=== PATIENT | male | born 1985 | race Caucasian/White ===

== ENCOUNTER 2023-09-02 14:26 | Emergency (ER) | payer SELFPAY ==
[~2023-09-02] VITALS: Ht 188 cm; Wt 102.1 kg
[2023-09-02] MEDS ORDERED: NAPROSYN500 MG PO (15:10)
[2023-09-02] MEDS ORDERED: METHOCARBAMOL500 MG PO (15:10)
[2023-09-02] MEDS ORDERED: PREDNISONE50 MG PO (15:10)
[2023-09-02] MEDS ORDERED: KETOROLAC TROMETHAMINE 30 MG/ML VIAL ONE (15:13)
[2023-09-02] MEDS ORDERED: ACETAMINOPHEN 325 MG TAB ONE (15:13)
[2023-09-02] MEDS ORDERED: ACETAMINOPHEN 325 MG TAB PO ONE (15:15)
[2023-09-02] MEDS ORDERED: KETOROLAC TROMETHAMINE 60 MG/2 ML VIAL IM ONE (15:15)
[2023-09-02] MEDS ORDERED: KETOROLAC TROMETHAMINE 60 MG/2 ML VIAL ONE (15:15)
[2023-09-02 16:48] VITALS: O2SAT 99
== END 2023-09-02 16:03 | disposition home or self-care (01) ==
LOC: EDBD 14:26 → FSED 14:34
DX: M54.50 Low back pain, unspecified (principal); M25.551 Pain in right hip; F17.210 Nicotine dependence, cigarettes, uncomplicated
CPT/HCPCS: 72100; 73502; 99283; J1885